=== PATIENT | female | born 1950 | race Caucasian/White ===

== ENCOUNTER → 2022-06-18 | Day surgery (SDC) | payer MEDICARE ==
[~2022-06-18] VITALS: Ht 170.2 cm; Wt 90.7 kg
[~2022-06-18] MED LIST: ALL DAY ALLERGY10 MG PO; ASCORBIC ACID500 MG PO; BIOTIN1 MG PO; CINNAMON500 MG PO; COZAAR25 MG PO; CRESTOR10 MG PO; CYCLOBENZAPRINE10 MG PO; DESYREL50 MG PO; NORVASC5 MG PO; ULTRAM50 MG PO; VITAMIN B-121000 MC1 PO; VITAMIN D350 MC6 PO
== END | disposition home or self-care (01) ==
LOC: FAS 10:11
DX: Z12.11 Encounter for screening for malignant neoplasm of colon (principal); K57.30 Diverticulosis of large intestine without perforation or abscess without bleeding; Z86.010 Personal history of colon polyps; Z80.0 Family history of malignant neoplasm of digestive organs; I10 Essential (primary) hypertension; E78.5 Hyperlipidemia, unspecified; M19.90 Unspecified osteoarthritis, unspecified site; Z79.899 Other long term (current) drug therapy
CPT/HCPCS: J2704; J7120